=== PATIENT | female | born 1935 | race African-American/Black ===

== ENCOUNTER 2016-06-30 18:31 | Emergency (ER) | payer OTHER, MEDICARE ==
[~2016-06-30] VITALS: Ht 172.7 cm; Wt 108.9 kg
[~2016-06-30 18:31] MED LIST: ACET-2165 PO; ALBU2.5V7 INH; BENZ1LOZ58 MM; BIMA2.5D5 OP; CALC-226 PO; CYAI1000 IM; DOCU-144 PO; DONE10TA44 PO; FERR-57 PO; ISOS30TA PO; MAGN400O4 PO; MAGN400T10 PO; MIRT30TA PO; MULT-1089 PO; NEU400 PO; NITSL SL; OLAN5TAB3 PO; OXYC-130 PO; PRO40 PO; REM15 PO; RIVA20TA PO; TIMO5DRO4 OP; TIOT18CA3; TIZA4TAB11 PO
[2016-06-30 18:42] VITALS: BP_SYST 125
[2016-06-30] MEDS ORDERED: ACETAMINOPHEN 325 MG TABLET PO ONE (19:30)
[2016-06-30 23:35] VITALS: BP_SYST 110
== END 2016-06-30 23:55 | disposition home or self-care (01) ==
LOC: SED 18:31
DX: S82.201A Unspecified fracture of shaft of right tibia, initial encounter for closed fracture (principal); J44.9 Chronic obstructive pulmonary disease, unspecified; F03.90 Unspecified dementia, unspecified severity, without behavioral disturbance, psychotic disturbance, mood disturbance, and anxiety; K21.9 Gastro-esophageal reflux disease without esophagitis; I10 Essential (primary) hypertension; Z86.73 Personal history of transient ischemic attack (TIA), and cerebral infarction without residual deficits; Z79.899 Other long term (current) drug therapy; W22.8XXA Striking against or struck by other objects, initial encounter; Y93.89 Activity, other specified; Y92.89 Other specified places as the place of occurrence of the external cause; Y99.8 Other external cause status
CPT/HCPCS: 73590-TC; 99284

== ENCOUNTER 2016-07-01 10:59 | Emergency (ER) | payer OTHER, MEDICARE ==
[~2016-07-01] VITALS: Ht 167.6 cm; Wt 108.9 kg
[2016-07-01 11:00] VITALS: BP_SYST 135
--- NOTE | 2016-07-01 11:04 | NUR ---
Patient was sent to Dr. Israel's office via [employer]. Patient was redirected by Dr. Israel's office to the ER, where it was assumed that Dr. Barrios would see the patient. Dr. Barrios did not have a plan to see the patient in ER. Patient was checked into ER as there did not seem to be a plan to see the patient. Despite the patient having been treated in ER last night, it seemed neccesary to have patient to satisfy EMTALA. Patient to ER bed 3 to gown for evaluation. Side rails up. Report given to Saumya TELLEZ.
--- NOTE | 2016-07-01 11:05 | NUR ---
Patient received in bed 3 with RLE pain 07/20. Patient states, "My son was moving me from wheelchair to bed and my legs were dangling and I heard a pop." Patient states that her son was alone during transfer. Patient has difficulty moving RLE but is able to wiggle toes. Right leg noted with swelling and covered with zeinab bandage and cast padding. RLE is warm to touch, able to feel pulse, hurts with movement.
--- NOTE | 2016-07-01 11:06 | NUR ---
CHRISSIE Macdonald at bedside examining patient.
--- NOTE | 2016-07-01 12:59 | NUR ---
Old splint which was mid-thigh to mid-calf removed. Long leg posterior splint applied to RLE. Brisk cap refill after resplinting. Unable to palpate pulse due to splint.
--- NOTE | 2016-07-01 14:07 | NUR ---
CHRISSIE Stone at bedside examining patient.
--- NOTE | 2016-07-01 14:10 | NUR ---
DR MONTENEGRO HERE AND WENT TO SEE PT.
--- NOTE | 2016-07-01 14:25 | NUR ---
Patient given written and verbal discharge instructions and verbalizes understanding. ER MD DR KINSEY discussed with patient the results and treatment provided. Patient in stable condition. ID arm band removed. Patient educated on pain management and to follow up with PMD. Pain Scale [0]. Opportunity for questions provided and answered.
[2016-07-01 14:32] VITALS: BP_SYST 123
== END 2016-07-01 14:25 | disposition home or self-care (01) ==
LOC: SED 10:59
DX: M80.861A Other osteoporosis with current pathological fracture, right lower leg, initial encounter for fracture (principal); J44.9 Chronic obstructive pulmonary disease, unspecified; F03.90 Unspecified dementia, unspecified severity, without behavioral disturbance, psychotic disturbance, mood disturbance, and anxiety; K21.9 Gastro-esophageal reflux disease without esophagitis; I10 Essential (primary) hypertension; Z86.79 Personal history of other diseases of the circulatory system; Z79.899 Other long term (current) drug therapy
CPT/HCPCS: 73590-TC; 99284

== ENCOUNTER 2017-09-18 19:08 | Inpatient (IN) | payer OTHER, MEDICARE ==
[~2017-09-18] VITALS: Ht 154.9 cm; Wt 85.7 kg
[~2017-09-18 19:08] MED LIST changes: +BACTROBAN NS; -CALC-226 PO; -MAGN400T10 PO; -MIRT30TA PO; -NEU400 PO; -OLAN5TAB3 PO; +POTA20TA83 PO; -REM15 PO; -RIVA20TA PO; -TIZA4TAB11 PO; +[UNRECOGNIZED DRUG - CODE] IV
[2017-09-18 19:10] VITALS: BP_SYST 98
[2017-09-18] MEDS ORDERED: NACL 0.9% 1,000 ML IV ONE (19:30)
[2017-09-18 20:00] LABS: ANION GAP 9 (5-15); CALCIUM 8.2 mg/dL (8.4-11.0); CHLORIDE 105 mmol/L (98-107); CREATININE 0.77 mg/dL (0.55-1.30); GLUCOSE 115 mg/dL (70-99); POTASSIUM 3.8 mmol/L (3.5-5.1); SODIUM SERUM 139 mmol/L (136-145); UREA NITROGEN, BLOOD 12 mg/dL (8-21)
[2017-09-18 20:03] LABS: INR 1.1 (0.8-1.2); PROTHROMBIN TIME 11.6 SECS (9.5-12.5)
[2017-09-18] MEDS ORDERED: BIMA2.5D5 OP (20:06)
[2017-09-18] MEDS ORDERED: SENN8.8S13 PO (20:06)
[2017-09-18] MEDS ORDERED: FURO-149 PO (20:06)
[2017-09-18] MEDS ORDERED: OXYC-133 PO (20:06)
[2017-09-18] MEDS ORDERED: PROLIX PO (20:06)
[2017-09-18] MEDS ORDERED: ISOS30TA6 PO (20:06)
[2017-09-18] MEDS ORDERED: PRIM50TA27 PO (20:06)
[2017-09-18] MEDS ORDERED: OSC500 PO (20:06)
[2017-09-18] MEDS ORDERED: MULT PO (20:06)
[2017-09-18] MEDS ORDERED: COG1 PO (20:06)
[2017-09-18] MEDS ORDERED: MELA3TAB37 PO (20:06)
[2017-09-18] MEDS ORDERED: BRI.2% OP (20:06)
[2017-09-18] MEDS ORDERED: DEPAK250 PO (20:06)
[2017-09-18] MEDS ORDERED: SPIRIVA INH (20:06)
[2017-09-18] MEDS ORDERED: FLUT1DIS3 INH (20:06)
[2017-09-18] MEDS ORDERED: POLY17PO4 PO (20:06)
[2017-09-18] MEDS ORDERED: DONE10TA44 PO (20:06)
[2017-09-18] MEDS ORDERED: RISP1TAB7 PO (20:06)
[2017-09-18] MEDS ORDERED: RISP0.5T2 PO (20:06)
[2017-09-18] MEDS ORDERED: LASI20 IVP (20:06)
[2017-09-18 20:14] LABS: MEAN CORPUSCULAR HEMOGLOBIN 21 pg (27-31); RED CELL DISTRIBUTION WIDTH 21.4 % (9.0-15.0)
[2017-09-18 20:15] LABS: ALANINE AMINOTRANSFERASE 22 U/L (12-78); ALBUMIN 2.4 g/dL (3.4-4.8); ASPARTATE AMINOTRANSFERASE 26 U/L (10-37); TOTAL BILIRUBIN 0.3 mg/dL (0.0-1.0)
[2017-09-18 20:18] LABS: HEMATOCRIT 26.5 % (36-48); MEAN CORPUSCULAR HGB CONC 30 % (32-36); MEAN CORPUSCULAR VOLUME 68 fL (79.0-98.0); PLATELET COUNT (AUTO) 257 K/uL (130-430); WHITE BLOOD COUNT (AUTO) 8.8 K/uL (4.8-10.8)
[2017-09-18 20:28] LABS: BILIRUBIN,URINE NEGATIVE (NEGATIVE); BLOOD, URINE NEGATIVE (NEGATIVE); CLARITY/URINE CLEAR (CLEAR); COLOR,URINE YELLOW (YELLOW); GLUCOSE,URINE NEGATIVE (NEGATIVE); KETONES,URINE TRACE (NEGATIVE); LEUKOCYTE ESTERASE ,URINE TRACE (NEGATIVE); NITRITE, URINE NEGATIVE (NEGATIVE); PH,URINE 5.5 (5.0-8.0); PROTEIN URINE NEGATIVE (NEGATIVE); UROBILINOGEN,URINE 0.2 (0.2-1.0)
[2017-09-18] MEDS ORDERED: AZITHROMYCIN 500 MG in NS 250 ML IV ONE (20:30)
[2017-09-18 20:31] LABS: BACTERIA,URINE MODERATE /HPF (None Seen); HYALINE CASTS, URINE 0-10 /LPF (None Seen); MUCUS,URINE 2+ /LPF (None Seen); RBC,URINE 0-3 /HPF (0-3); WBC,URINE 0-3 /HPF (0-3)
[2017-09-18] MEDS ORDERED: AZITHROMYCIN 500 MG/VIAL (ZITHROMAX) IV ONE (21:08)
[2017-09-18 21:28] LABS: BAND % (MANUAL) 2 % (0-6); BASOPHILS % (MANUAL) 0 % (0-2); EOSINOPHILS % (MANUAL) 1 % (0-7); LYMPHOCYTES % (MANUAL) 16 % (20-46); MONOCYTES % (MANUAL) 10 % (0-11)
[2017-09-18 21:31] LABS: ATYPICAL LYMPHOCYTES % 2 % (0-0)
[2017-09-18] MEDS ORDERED: NACL 0.9% IV ONE (21:45)
[2017-09-18] MEDS ORDERED: MORPHINE 4 MG/ML INJ. SYRINGE IVP ONE (21:45)
[2017-09-18] MEDS ORDERED: NOREPINEPHRINE BITARTRATE 4 MG in NS 246 ML IV ONE ×2 (22:30→23:30)
[2017-09-18] MEDS ORDERED: VANCOMYCIN HCL 1,000 MG in NS 250 ML IV ONE (23:30)
[2017-09-18] MEDS ORDERED: VANCOMYCIN HCL 1000 MG/VIAL IV ONE (23:48)
[2017-09-19] VITALS (28 sets, daily range): BP systolic 78–127
[2017-09-19] MEDS ORDERED: IPRATROPIUM/ALBUTEROL SULFATE 3 ML AMPUL.NEB ONE (01:22)
[2017-09-19] MEDS ORDERED: methylPREDNISolone SOD SUCC/PF 62.5 MG/ML VIAL IVP SCH (02:00)
[2017-09-19] MEDS ORDERED: AZITHROMYCIN 500 MG/VIAL (ZITHROMAX) IV ONE (02:54)
[2017-09-19] MEDS ORDERED: PIPERACILLIN/TAZOBACTAM 2.25 GM VIAL IV ONE (02:55)
[2017-09-19] MEDS: AZITHROMYCIN 500 MG in NS 250 ML IV SCH (03:03)
[2017-09-19] MEDS ORDERED: PANTOPRAZOLE SODIUM 40 MG/VIAL (PROTONIX) ONE (03:38)
[2017-09-19] MEDS ORDERED: FUROSEMIDE 20 MG/2 ML VIAL ONE (03:38)
[2017-09-19] MEDS ORDERED: NOREPINEPHRINE 4 MG/4 ML VIAL IV ONE ×2 (03:40→09:31)
[2017-09-19] MEDS: PANTOPRAZOLE SODIUM 40 MG/VIAL (PROTONIX) IVP SCH ×3 (03:40→21:09)
[2017-09-19] MEDS: FUROSEMIDE 20 MG/2 ML VIAL IVP SCH ×2 (03:59→08:15)
[2017-09-19] MEDS: IPRATROPIUM/ALBUTEROL SULFATE 3 ML AMPUL.NEB INH SCH ×6 (04:04→23:29)
[2017-09-19] MEDS: PIPERACILLIN/TAZO 2.25G/DEX-IS 50 ML IV SCH ×4 (04:09→21:08)
[2017-09-19 07:24] LABS: SODIUM SERUM 145 mmol/L (136-145)
[2017-09-19 07:25] LABS: ANION GAP 14 (5-15); CALCIUM 7.6 mg/dL (8.4-11.0); CHLORIDE 109 mmol/L (98-107); GLUCOSE 103 mg/dL (70-99); POTASSIUM 3.6 mmol/L (3.5-5.1); UREA NITROGEN, BLOOD 9 mg/dL (8-21)
[2017-09-19 07:49] LABS: TOTAL IRON BIND. CAPACITY 259 ug/dL (250-450)
[2017-09-19 07:51] LABS: CHOLESTEROL 123 mg/dL (<200); HDL CHOLESTEROL 52 mg/dL (>55); LDL CHOLESTEROL 58 mg/dL (<100); THYROID STIMULATING HORMONE 0.84 uIu/mL (0.34-4.82); TRIGLYCERIDES 83 mg/dL (30-150)
[2017-09-19 08:05] LABS: HEMATOCRIT 31.7 % (36-48); MEAN CORPUSCULAR HEMOGLOBIN 20 pg (27-31); MEAN CORPUSCULAR HGB CONC 29 % (32-36); MEAN CORPUSCULAR VOLUME 70 fL (79.0-98.0); PLATELET COUNT (AUTO) 329 K/uL (130-430); RED BLOOD CELL COUNT(AUTO) 4.54 MIL/uL (4.2-6.2); RED CELL DISTRIBUTION WIDTH 21.6 % (9.0-15.0); WHITE BLOOD COUNT (AUTO) 10.2 K/uL (4.8-10.8)
[2017-09-19 08:10] LABS: HEMOGLOBIN 9.1 g/dL (12.0-16.0)
[2017-09-19] MEDS: methylPREDNISolone SOD SUCC 40 MG/ML VIAL IVP SCH ×2 (08:15→21:09)
[2017-09-19] MEDS ORDERED: NACL 0.9% 1,000 ML IV ONE (08:30)
[2017-09-19] MEDS: BENZTROPINE MESYLATE 1 MG TABLET PO SCH ×2 (08:56→21:11)
[2017-09-19] MEDS: FERROUS SULFATE 325 MG TABLET.DR PO SCH ×3 (08:57→21:11)
[2017-09-19] MEDS: MULTIVITAMINS TAB 1 TABLET PO SCH (08:58)
[2017-09-19] MEDS: POTASSIUM CHLORIDE 20 MEQ TAB.PRT.SR PO SCH ×2 (08:59→21:11)
[2017-09-19] MEDS ORDERED: VALPROIC ACID 250 MG CAPSULE (DEPAKENE) PO SCH (09:00)
[2017-09-19] MEDS: TIMOLOL MALEATE 0.5% OPHTHALMIC DROPS 5 ML OP SCH (09:44)
[2017-09-19] MEDS: NACL 0.9% 1,000 ML IV SCH ×4 (09:46→23:48)
[2017-09-19] MEDS ORDERED: cefTRIAXone 1 GM in D5W 50 ML IV SCH (11:00)
[2017-09-19] MEDS ORDERED: IOHEXOL 350 mgI/mL, 150 ML INFUS..BTL IV ONE (12:24)
[2017-09-19 12:58] LABS: ATYPICAL LYMPHOCYTES % 0 % (0-0); BAND % (MANUAL) 0 % (0-6); LYMPHOCYTES % (MANUAL) 19 % (20-46); MONOCYTES % (MANUAL) 9 % (0-11)
[2017-09-19 12:59] LABS: BASOPHILS % (MANUAL) 0 % (0-2); EOSINOPHILS % (MANUAL) 0 % (0-7)
[2017-09-19] MEDS ORDERED: ENOXAPARIN SODIUM 80 MG/0.8 ML SYRINGE SUBCUT SCH (13:30)
[2017-09-19] MEDS ORDERED: *HEPARIN PER PHARMACY XX ONE (19:30)
[2017-09-19] MEDS ORDERED: HEPARIN SODIUM,PORCINE 3000 UNITS/0.6 ML BOLUS IVP PRN (19:45)
[2017-09-19] MEDS ORDERED: HEPARIN SODIUM,PORCINE 2000 UNITS/0.4 ML BOLUS IVP PRN (19:45)
[2017-09-19] MEDS ORDERED: HEPARIN SODIUM,PORCINE 5000 UNITS/ML VIAL IV SCH (20:00)
[2017-09-19 20:50] LABS: INR 1.3 (0.8-1.2); PROTHROMBIN TIME 12.7 SECS (9.5-12.5)
[2017-09-19] MEDS: PRIMIDONE 50 MG TABLET PO SCH (21:11)
[2017-09-19] MEDS: DONEPEZIL HCL 5 MG TABLET (ARICEPT) PO SCH (21:11)
[2017-09-19] MEDS ORDERED: methylPREDNISolone SOD SUCC 40 MG/ML VIAL ONE (21:19)
[2017-09-19] MEDS: NOREPINEPHRINE BITARTRATE 4 MG in D5W 246 ML IV PRN (21:20)
[2017-09-19] MEDS: LATANOPROST 2.5 ML DROPS (XALATAN) OP SCH (21:29)
[2017-09-19] MEDS ORDERED: HEPARIN SODIUM, PORCINE 10,000 UNITS/ 10 ML VIAL ONE (22:48)
[2017-09-19] MEDS ORDERED: HEPARIN SODIUM,PORCINE 10,000 UNIT/ML VIAL IV SCH (23:00)
[2017-09-19] MEDS: HEPARIN 25,000 UNITS in 250 ML PREMIX IV PRN (23:07)
[2017-09-20] VITALS (23 sets, daily range): BP systolic 96–136
[2017-09-20] MEDS: AZITHROMYCIN 500 MG in NS 250 ML IV SCH (02:54)
[2017-09-20] MEDS: PIPERACILLIN/TAZO 2.25G/DEX-IS 50 ML IV SCH ×4 (03:12→20:28)
[2017-09-20] MEDS: NOREPINEPHRINE BITARTRATE 4 MG in D5W 246 ML IV PRN ×3 (03:48→16:30)
[2017-09-20] MEDS: IPRATROPIUM/ALBUTEROL SULFATE 3 ML AMPUL.NEB INH SCH ×6 (04:01→23:45)
[2017-09-20 06:38] LABS: HEMOGLOBIN 8.4 g/dL (12.0-16.0)
[2017-09-20 07:00] LABS: HEMATOCRIT 28.8 % (36-48); MEAN CORPUSCULAR HEMOGLOBIN 20 pg (27-31); MEAN CORPUSCULAR HGB CONC 29 % (32-36); MEAN CORPUSCULAR VOLUME 69 fL (79.0-98.0); RED BLOOD CELL COUNT(AUTO) 4.15 MIL/uL (4.2-6.2); RED CELL DISTRIBUTION WIDTH 22.3 % (9.0-15.0); WHITE BLOOD COUNT (AUTO) 7.4 K/uL (4.8-10.8)
[2017-09-20 07:14] LABS: ALANINE AMINOTRANSFERASE 16 U/L (12-78); ALBUMIN 2.2 g/dL (3.4-4.8); ANION GAP 11 (5-15); ASPARTATE AMINOTRANSFERASE 12 U/L (10-37); CALCIUM 7.1 mg/dL (8.4-11.0); CHLORIDE 110 mmol/L (98-107); CREATININE 0.76 mg/dL (0.55-1.30); GLUCOSE 143 mg/dL (70-99); SODIUM SERUM 144 mmol/L (136-145); THYROID STIMULATING HORMONE 0.18 uIu/mL (0.34-4.82); TOTAL BILIRUBIN 0.3 mg/dL (0.0-1.0); UREA NITROGEN, BLOOD 7 mg/dL (8-21)
[2017-09-20] MEDS ORDERED: POTASSIUM CHLORIDE 40 MEQ in NS 250 ML IV ONE (08:30)
[2017-09-20] MEDS: methylPREDNISolone SOD SUCC 40 MG/ML VIAL IVP SCH ×2 (09:18→20:35)
[2017-09-20] MEDS: PANTOPRAZOLE SODIUM 40 MG/VIAL (PROTONIX) IVP SCH ×2 (09:18→20:35)
[2017-09-20] MEDS: MULTIVITAMINS TAB 1 TABLET PO SCH (09:19)
[2017-09-20] MEDS: POTASSIUM CHLORIDE 20 MEQ TAB.PRT.SR PO SCH ×2 (09:19→20:36)
[2017-09-20] MEDS: BENZTROPINE MESYLATE 1 MG TABLET PO SCH ×2 (09:20→20:36)
[2017-09-20] MEDS: FERROUS SULFATE 325 MG TABLET.DR PO SCH ×3 (09:20→20:36)
[2017-09-20] MEDS: TIMOLOL MALEATE 0.5% OPHTHALMIC DROPS 5 ML OP SCH (09:20)
[2017-09-20] MEDS ORDERED: 0.45% NACL 1,000 ML IV SCH (10:15)
[2017-09-20 12:15] LABS: FOLATE (FOLIC ACID) 3.7 ng/mL (>3.0)
[2017-09-20 13:50] LABS: PLATELET COUNT (AUTO) 313 K/uL (130-430)
[2017-09-20 13:51] LABS: ATYPICAL LYMPHOCYTES % 0 % (0-0); BAND % (MANUAL) 0 % (0-6); BASOPHILS % (MANUAL) 0 % (0-2); EOSINOPHILS % (MANUAL) 0 % (0-7); LYMPHOCYTES % (MANUAL) 29 % (20-46); MONOCYTES % (MANUAL) 9 % (0-11)
[2017-09-20] MEDS: NACL 0.9% 1,000 ML IV SCH ×2 (14:14→16:26)
[2017-09-20] MEDS: VALPROIC ACID ORAL SYRUP 250 MG/5 ML UDC PO SCH (16:27)
[2017-09-20] MEDS: HEPARIN 25,000 UNITS in 250 ML PREMIX IV PRN (16:29)
[2017-09-20] MEDS ORDERED: KCL 40 mEq in 100 mL (PREMIX) 100 ML IV ONE (19:00)
[2017-09-20] MEDS: POTASSIUM CHLORIDE 20 mEq in 100 mL (PREMIX) 100 ML x 2 doses IV SCH ×2 (20:14→23:04)
[2017-09-20] MEDS: SOD FERRIC GLUC COMPLEX/SUC 125 MG in NS 100 ML IV SCH (20:14)
[2017-09-20] MEDS: PRIMIDONE 50 MG TABLET PO SCH (20:36)
[2017-09-20] MEDS: DONEPEZIL HCL 5 MG TABLET (ARICEPT) PO SCH (20:36)
[2017-09-20] MEDS: LATANOPROST 2.5 ML DROPS (XALATAN) OP SCH (20:36)
[2017-09-21] VITALS (24 sets, daily range): BP systolic 81–135
[2017-09-21] MEDS: NOREPINEPHRINE BITARTRATE 4 MG in D5W 246 ML IV PRN (00:01)
[2017-09-21] MEDS: AZITHROMYCIN 500 MG in NS 250 ML IV SCH (01:59)
[2017-09-21] MEDS: PIPERACILLIN/TAZO 2.25G/DEX-IS 50 ML IV SCH ×4 (03:19→21:05)
[2017-09-21] MEDS: IPRATROPIUM/ALBUTEROL SULFATE 3 ML AMPUL.NEB INH SCH ×6 (03:49→23:57)
[2017-09-21] MEDS: NACL 0.9% 1,000 ML IV SCH ×2 (05:55→14:32)
[2017-09-21 08:17] LABS: INR 1.1 (0.8-1.2); PROTHROMBIN TIME 11.2 SECS (9.5-12.5)
[2017-09-21 08:18] LABS: ALANINE AMINOTRANSFERASE 13 U/L (12-78); ALBUMIN 2.2 g/dL (3.4-4.8); ANION GAP 8 (5-15); ASPARTATE AMINOTRANSFERASE 9 U/L (10-37); CALCIUM 7.9 mg/dL (8.4-11.0); CHLORIDE 112 mmol/L (98-107); GLUCOSE 111 mg/dL (70-99); POTASSIUM 4.1 mmol/L (3.5-5.1); SODIUM SERUM 141 mmol/L (136-145); TOTAL BILIRUBIN 0.3 mg/dL (0.0-1.0); UREA NITROGEN, BLOOD 4 mg/dL (8-21)
[2017-09-21 08:38] LABS: MEAN CORPUSCULAR VOLUME 71 fL (79.0-98.0); WHITE BLOOD COUNT (AUTO) 5.3 K/uL (4.8-10.8)
[2017-09-21 08:43] LABS: HEMATOCRIT 29.9 % (36-48); HEMOGLOBIN 9.1 g/dL (12.0-16.0); MEAN CORPUSCULAR HEMOGLOBIN 21 pg (27-31); MEAN CORPUSCULAR HGB CONC 30 % (32-36); PLATELET COUNT (AUTO) 344 K/uL (130-430); RED BLOOD CELL COUNT(AUTO) 4.23 MIL/uL (4.2-6.2); RED CELL DISTRIBUTION WIDTH 23.3 % (9.0-15.0)
[2017-09-21] MEDS: PANTOPRAZOLE SODIUM 40 MG/VIAL (PROTONIX) IVP SCH ×2 (08:50→21:05)
[2017-09-21] MEDS: VALPROIC ACID ORAL SYRUP 250 MG/5 ML UDC PO SCH (08:51)
[2017-09-21] MEDS: POTASSIUM CHLORIDE 20 MEQ TAB.PRT.SR PO SCH ×2 (08:51→21:15)
[2017-09-21] MEDS: MULTIVITAMINS TAB 1 TABLET PO SCH (08:51)
[2017-09-21] MEDS: FERROUS SULFATE 325 MG TABLET.DR PO SCH ×3 (08:51→21:15)
[2017-09-21] MEDS: BENZTROPINE MESYLATE 1 MG TABLET PO SCH ×2 (08:51→21:15)
[2017-09-21] MEDS: methylPREDNISolone SOD SUCC 40 MG/ML VIAL IVP SCH ×2 (08:52→21:05)
[2017-09-21] MEDS: TIMOLOL MALEATE 0.5% OPHTHALMIC DROPS 5 ML OP SCH (08:52)
[2017-09-21 09:59] LABS: RETICULOCYTE COUNT 2.7 % (0.5-1.5)
[2017-09-21] MEDS ORDERED: *LOVENOX 1MG/KG Q12H/PHARMACY XX PRN (10:30)
[2017-09-21] MEDS ORDERED: ENOXAPARIN SODIUM 80 MG/0.8 ML SYRINGE SUBCUT ONE (11:00)
[2017-09-21 14:05] LABS: BASOPHILS % (MANUAL) 0 % (0-2); EOSINOPHILS % (MANUAL) 2 % (0-7); LYMPHOCYTES % (MANUAL) 14 % (20-46); MONOCYTES % (MANUAL) 12 % (0-11)
[2017-09-21] MEDS: SOD FERRIC GLUC COMPLEX/SUC 125 MG in NS 100 ML IV SCH (20:07)
[2017-09-21] MEDS ORDERED: ENOXAPARIN SODIUM 40 MG/0.4 ML SYRINGE ONE (21:05)
[2017-09-21] MEDS: LATANOPROST 2.5 ML DROPS (XALATAN) OP SCH (21:07)
[2017-09-21] MEDS: DONEPEZIL HCL 5 MG TABLET (ARICEPT) PO SCH (21:07)
[2017-09-21] MEDS: PRIMIDONE 50 MG TABLET PO SCH (21:07)
[2017-09-21] MEDS: ENOXAPARIN SODIUM 80 MG/0.8 ML SYRINGE SUBCUT SCH (21:13)
[2017-09-22] VITALS (22 sets, daily range): BP systolic 99–146
[2017-09-22] MEDS: NACL 0.9% 1,000 ML IV SCH ×2 (00:10→10:06)
[2017-09-22] MEDS: AZITHROMYCIN 500 MG in NS 250 ML IV SCH (02:09)
[2017-09-22] MEDS: PIPERACILLIN/TAZO 2.25G/DEX-IS 50 ML IV SCH ×4 (03:28→22:29)
[2017-09-22] MEDS: IPRATROPIUM/ALBUTEROL SULFATE 3 ML AMPUL.NEB INH SCH ×6 (03:56→23:46)
[2017-09-22 06:48] LABS: HEMATOCRIT 28.8 % (36-48); HEMOGLOBIN 8.6 g/dL (12.0-16.0); MEAN CORPUSCULAR HEMOGLOBIN 21 pg (27-31); MEAN CORPUSCULAR HGB CONC 30 % (32-36); MEAN CORPUSCULAR VOLUME 72 fL (79.0-98.0); PLATELET COUNT (AUTO) 356 K/uL (130-430); RED BLOOD CELL COUNT(AUTO) 4.02 MIL/uL (4.2-6.2); RED CELL DISTRIBUTION WIDTH 23.6 % (9.0-15.0); WHITE BLOOD COUNT (AUTO) 5.2 K/uL (4.8-10.8)
[2017-09-22 06:54] LABS: ANION GAP 8 (5-15); CALCIUM 8.3 mg/dL (8.4-11.0); CHLORIDE 114 mmol/L (98-107); CREATININE 0.54 mg/dL (0.55-1.30); GLUCOSE 87 mg/dL (70-99); POTASSIUM 4.2 mmol/L (3.5-5.1); SODIUM SERUM 144 mmol/L (136-145); UREA NITROGEN, BLOOD 5 mg/dL (8-21)
[2017-09-22 08:35] LABS: BASOPHILS % (MANUAL) 0 % (0-2); EOSINOPHILS % (MANUAL) 0 % (0-7); LYMPHOCYTES % (MANUAL) 10 % (20-46); MONOCYTES % (MANUAL) 9 % (0-11)
[2017-09-22] MEDS: FERROUS SULFATE 325 MG TABLET.DR PO SCH ×3 (08:40→22:32)
[2017-09-22] MEDS: BENZTROPINE MESYLATE 1 MG TABLET PO SCH ×2 (08:40→22:32)
[2017-09-22] MEDS: VALPROIC ACID ORAL SYRUP 250 MG/5 ML UDC PO SCH (08:40)
[2017-09-22] MEDS: POTASSIUM CHLORIDE 20 MEQ TAB.PRT.SR PO SCH (08:41)
[2017-09-22] MEDS: MULTIVITAMINS TAB 1 TABLET PO SCH (08:41)
[2017-09-22] MEDS: PANTOPRAZOLE SODIUM 40 MG/VIAL (PROTONIX) IVP SCH (08:41)
[2017-09-22] MEDS: methylPREDNISolone SOD SUCC 40 MG/ML VIAL IVP SCH ×2 (08:42→22:29)
[2017-09-22] MEDS: TIMOLOL MALEATE 0.5% OPHTHALMIC DROPS 5 ML OP SCH (08:42)
[2017-09-22] MEDS: ENOXAPARIN SODIUM 80 MG/0.8 ML SYRINGE SUBCUT SCH ×2 (09:02→22:35)
[2017-09-22] MEDS: 0.45% NACL 1,000 ML IV SCH (15:23)
[2017-09-22] MEDS: SOD FERRIC GLUC COMPLEX/SUC 125 MG in NS 100 ML IV SCH (22:28)
[2017-09-22] MEDS: LATANOPROST 2.5 ML DROPS (XALATAN) OP SCH (22:30)
[2017-09-22] MEDS: PRIMIDONE 50 MG TABLET PO SCH (22:33)
[2017-09-22] MEDS: DONEPEZIL HCL 5 MG TABLET (ARICEPT) PO SCH (22:39)
[2017-09-23 00:29] VITALS: BP_SYST 113
[2017-09-23] MEDS: AZITHROMYCIN 500 MG in NS 250 ML IV SCH (02:23)
[2017-09-23] MEDS: IPRATROPIUM/ALBUTEROL SULFATE 3 ML AMPUL.NEB INH SCH ×6 (03:30→23:00)
[2017-09-23] MEDS: PIPERACILLIN/TAZO 2.25G/DEX-IS 50 ML IV SCH ×4 (05:38→23:39)
[2017-09-23 05:58] LABS: HEMATOCRIT 30.4 % (36-48); MEAN CORPUSCULAR HEMOGLOBIN 21 pg (27-31); MEAN CORPUSCULAR HGB CONC 30 % (32-36); MEAN CORPUSCULAR VOLUME 72 fL (79.0-98.0); PLATELET COUNT (AUTO) 404 K/uL (130-430); RED BLOOD CELL COUNT(AUTO) 4.23 MIL/uL (4.2-6.2); RED CELL DISTRIBUTION WIDTH 24.4 % (9.0-15.0); WHITE BLOOD COUNT (AUTO) 6.1 K/uL (4.8-10.8)
[2017-09-23 06:33] LABS: ANION GAP 7 (5-15); CALCIUM 8.7 mg/dL (8.4-11.0); CHLORIDE 110 mmol/L (98-107); GLUCOSE 87 mg/dL (70-99); POTASSIUM 4.3 mmol/L (3.5-5.1); SODIUM SERUM 139 mmol/L (136-145); UREA NITROGEN, BLOOD 5 mg/dL (8-21)
[2017-09-23 08:00] VITALS: BP_SYST 113
[2017-09-23] MEDS: ENOXAPARIN SODIUM 80 MG/0.8 ML SYRINGE SUBCUT SCH ×2 (09:23→20:27)
[2017-09-23] MEDS: PANTOPRAZOLE SODIUM 40 MG TAB PO SCH (09:23)
[2017-09-23] MEDS: FERROUS SULFATE 325 MG TABLET.DR PO SCH ×3 (09:23→20:22)
[2017-09-23] MEDS: MULTIVITAMINS TAB 1 TABLET PO SCH (09:23)
[2017-09-23] MEDS: POTASSIUM CHLORIDE 20 MEQ TAB.PRT.SR PO SCH (09:23)
[2017-09-23] MEDS: VALPROIC ACID ORAL SYRUP 250 MG/5 ML UDC PO SCH (09:24)
[2017-09-23] MEDS: methylPREDNISolone SOD SUCC 40 MG/ML VIAL IVP SCH ×2 (09:24→20:23)
[2017-09-23] MEDS: BENZTROPINE MESYLATE 1 MG TABLET PO SCH ×2 (09:24→20:22)
[2017-09-23] MEDS: TIMOLOL MALEATE 0.5% OPHTHALMIC DROPS 5 ML OP SCH (09:49)
[2017-09-23 10:58] LABS: CORRECTED WHITE BLOOD COUNT 5.6 K/uL (4.5-11.0)
[2017-09-23 10:59] LABS: BASOPHILS % (MANUAL) 0 % (0-2); EOSINOPHILS % (MANUAL) 0 % (0-7); LYMPHOCYTES % (MANUAL) 13 % (20-46); MONOCYTES % (MANUAL) 9 % (0-11)
[2017-09-23 12:30] VITALS: BP_SYST 109
[2017-09-23] MEDS: 0.45% NACL 1,000 ML IV SCH (13:11)
[2017-09-23] MEDS ORDERED: ACETAMINOPHEN 325 MG TABLET PO PRN (13:45)
[2017-09-23 16:00] VITALS: BP_SYST 111
[2017-09-23 20:00] VITALS: BP_SYST 121
[2017-09-23] MEDS: DONEPEZIL HCL 5 MG TABLET (ARICEPT) PO SCH (20:22)
[2017-09-23] MEDS: LATANOPROST 2.5 ML DROPS (XALATAN) OP SCH (20:29)
[2017-09-23] MEDS: SOD FERRIC GLUC COMPLEX/SUC 125 MG in NS 100 ML IV SCH (20:47)
[2017-09-23] MEDS: PRIMIDONE 50 MG TABLET PO SCH (23:39)
[2017-09-24 00:47] VITALS: BP_SYST 120
[2017-09-24] MEDS: IPRATROPIUM/ALBUTEROL SULFATE 3 ML AMPUL.NEB INH SCH ×4 (03:00→15:00)
[2017-09-24] MEDS: PIPERACILLIN/TAZO 2.25G/DEX-IS 50 ML IV SCH ×3 (03:24→15:21)
[2017-09-24 08:10] VITALS: BP_SYST 118
[2017-09-24 08:57] LABS: ANION GAP 8 (5-15); CALCIUM 9.1 mg/dL (8.4-11.0); CHLORIDE 108 mmol/L (98-107); CREATININE 0.52 mg/dL (0.55-1.30); GLUCOSE 81 mg/dL (70-99); POTASSIUM 4.2 mmol/L (3.5-5.1); SODIUM SERUM 142 mmol/L (136-145); UREA NITROGEN, BLOOD 6 mg/dL (8-21)
[2017-09-24] MEDS: ENOXAPARIN SODIUM 80 MG/0.8 ML SYRINGE SUBCUT SCH (08:57)
[2017-09-24] MEDS: BENZTROPINE MESYLATE 1 MG TABLET PO SCH (08:58)
[2017-09-24] MEDS: PANTOPRAZOLE SODIUM 40 MG TAB PO SCH (08:58)
[2017-09-24] MEDS: methylPREDNISolone SOD SUCC 40 MG/ML VIAL IVP SCH (08:58)
[2017-09-24] MEDS: FERROUS SULFATE 325 MG TABLET.DR PO SCH ×2 (08:59→15:21)
[2017-09-24] MEDS: VALPROIC ACID ORAL SYRUP 250 MG/5 ML UDC PO SCH (08:59)
[2017-09-24] MEDS: POTASSIUM CHLORIDE 20 MEQ TAB.PRT.SR PO SCH (08:59)
[2017-09-24] MEDS: MULTIVITAMINS TAB 1 TABLET PO SCH (09:00)
[2017-09-24] MEDS: TIMOLOL MALEATE 0.5% OPHTHALMIC DROPS 5 ML OP SCH (09:00)
[2017-09-24] MEDS: 0.45% NACL 1,000 ML IV SCH (09:01)
[2017-09-24 09:22] LABS: HEMATOCRIT 32.7 % (36-48); MEAN CORPUSCULAR HEMOGLOBIN 22 pg (27-31); MEAN CORPUSCULAR HGB CONC 31 % (32-36); MEAN CORPUSCULAR VOLUME 73 fL (79.0-98.0); PLATELET COUNT (AUTO) 445 K/uL (130-430); RED BLOOD CELL COUNT(AUTO) 4.48 MIL/uL (4.2-6.2); RED CELL DISTRIBUTION WIDTH 25.3 % (9.0-15.0); WHITE BLOOD COUNT (AUTO) 7.1 K/uL (4.8-10.8)
[2017-09-24 10:38] LABS: ATYPICAL LYMPHOCYTES % 0 % (0-0); BAND % (MANUAL) 0 % (0-6); BASOPHILS % (MANUAL) 0 % (0-2); EOSINOPHILS % (MANUAL) 1 % (0-7); LYMPHOCYTES % (MANUAL) 17 % (20-46); MONOCYTES % (MANUAL) 4 % (0-11)
[2017-09-24 10:40] LABS: MYELOCYTES % 1 % (0-0)
[2017-09-24 10:43] LABS: CORRECTED WHITE BLOOD COUNT 6.6 K/uL (4.5-11.0)
[2017-09-24 11:29] VITALS: BP_SYST 112
[2017-09-24 15:09] VITALS: BP_SYST 144
[2017-09-24 19:05] VITALS: BP_SYST 144
== END 2017-09-24 20:00 | DRG 871 ==
LOC: SED 19:08 → SIC 23:28 → STU 09-22 18:25
PROVIDERS: ADMIT Internal Medicine; ATTEND Internal Medicine
DX: A41.9 Sepsis, unspecified organism (principal); R65.21 Severe sepsis with septic shock; J96.01 Acute respiratory failure with hypoxia; J18.9 Pneumonia, unspecified organism; E43 Unspecified severe protein-calorie malnutrition; I26.99 Other pulmonary embolism without acute cor pulmonale; R53.2 Functional quadriplegia; I50.43 Acute on chronic combined systolic (congestive) and diastolic (congestive) heart failure; K92.2 Gastrointestinal hemorrhage, unspecified; J44.1 Chronic obstructive pulmonary disease with (acute) exacerbation; J44.0 Chronic obstructive pulmonary disease with (acute) lower respiratory infection; F03.91 Unspecified dementia, unspecified severity, with behavioral disturbance; I82.413 Acute embolism and thrombosis of femoral vein, bilateral; I82.432 Acute embolism and thrombosis of left popliteal vein; D63.8 Anemia in other chronic diseases classified elsewhere; K21.9 Gastro-esophageal reflux disease without esophagitis; I25.10 Atherosclerotic heart disease of native coronary artery without angina pectoris; E66.01 Morbid (severe) obesity due to excess calories; E87.6 Hypokalemia; D50.9 Iron deficiency anemia, unspecified; F32.9 Major depressive disorder, single episode, unspecified; M48.02 Spinal stenosis, cervical region; M48.061 Spinal stenosis, lumbar region without neurogenic claudication; H40.9 Unspecified glaucoma; I27.20 Pulmonary hypertension, unspecified; K44.9 Diaphragmatic hernia without obstruction or gangrene; M19.90 Unspecified osteoarthritis, unspecified site; N85.2 Hypertrophy of uterus; Z74.01 Bed confinement status; Z68.35 Body mass index [BMI] 35.0-35.9, adult; Z87.81 Personal history of (healed) traumatic fracture; Z87.891 Personal history of nicotine dependence; Z79.51 Long term (current) use of inhaled steroids; Z79.899 Other long term (current) drug therapy
CPT/HCPCS: 36415; 36600; 71045; 71275; 80048; 80053; 80061; 81000-TC; 82272; 82607; 82728; 82746; 82803-TC; 83540-TC; 83550-TC; 83605; 83735-TC; 83880; 84443-TC; 84484; 85007; 85027; 85044-TC; 85379; 85610-TC; 85730-TC; 86886; 86900; 86901; 86920; 87040-TC; 87081; 87086; 92610-GN; 93005; 93306; 93970; 94640; 94760; 96361; 96365; 96368; 99291; A6209; C1751; C9113; J0456; J0696; J1030; J1644; J1650; J1940; J1956; J2543; J2916; J3370; J3480; J7030; J7040; J7050; J7060; J7620; P9021; Q9967